=== PATIENT | female | born 2000 | race Caucasian/White ===

== ENCOUNTER 2023-09-15 21:18 | Emergency (ER) | payer OTHER, SELFPAY ==
[2023-09-15 21:35] VITALS: RESP 16; TEMP 36.8; O2SAT 99; BMI 29.2
--- NOTE | 2023-09-15 21:35 | HMH.EDGENADL ---
Discharge Plan Disposition Patient Disposition: Home, Self-Care Prescriptions Prescriptions: No Action No Known Home Medications Referrals Follow up/Referrals: Provider,MD Rusty [Primary Care Provider] - See instructions Activity Restrictions/Add. Instructions Additional Instructions/Restrictions: I am concerned that you could be having a miscarriage. Please follow-up in the next 2 to 3 days with [facility], PCP or ED to have your hormone level rechecked. Clinical Impressions Clinical Impression: Vaginal bleeding, Positive test Instructions Patient Instructions: DI for Urinary Tract Infection (UTI), DI for Urinary Tract Infection in Children Discharge ED Provider: Peter Pop General Adult HPI <Mayank Waldrop MD - Last Filed: 09/15/23 23:08> General Chief complaint: Urogenital-Female Stated complaint: vaginal bleeding Time Seen by Provider: 09/15/23 21:25 History of Present Illness HPI narrative: Patient is a 23-year-old female polysubstance abuser, reportedly a few weeks who presents emergency department for evaluation of vaginal bleeding. Onset was acute, over the last few days, passage of clots. Patient reportedly had 2 positive test at home. No other acute complaints at this time. Related Data Home Medications Medication Instructions Recorded Confirmed No Known Home Medications 09/15/23 09/15/23 Allergies Allergy/AdvReac Type Severity Reaction Status Date / Time No Known Allergies Allergy Verified 09/15/23 22:08 PFSH <Mayank Waldrop MD - Last Filed: 09/15/23 23:08> PFSH Disclaimer: The information contained in this section may have been updated after the patient was seen, as this information can be updated by other users. Social History (Updated 09/15/23 @ 23:08 by Mayank Waldrop MD) Smoking Status: Current every day smoker alcohol intake: never current occupational status: other Travel in the last 8 weeks: None <Mayank Waldrop MD - Last Filed: 09/15/23 23:08> ROS Obtained: Yes Systems reviewed as appropriate & no additional complaints except as documented Physical Exam <Mayank Waldrop MD - Last Filed: 09/15/23 23:08> General General appearance: alert and in no apparent distress Head Head exam: atraumatic and normocephalic Eye Eye exam: Present PERRL and EOMI ENT ENT exam: Present mucous membranes moist Neck Neck exam: Present normal inspection Chest Chest inspection: Present normal inspection and symmetric chest wall rise Respiratory Respiratory exam: Present normal lung sounds bilaterally; Absent respiratory distress Cardiovascular Cardiovascular exam: Present regular rate and normal rhythm Abdominal Exam Abdominal exam: Present soft; Absent tenderness, guarding or rebound Extremities Exam Extremities exam: Present normal inspection Neurological Exam Neurological exam: Present alert Psychiatric Psychiatric exam: Present normal affect Skin Skin exam: Present warm and dry Medical Decision Making <Mayank Waldrop MD - Last Filed: 09/15/23 23:08> Rex Riggs Pt receiving controlled substance: No Vital Signs: 09/15/23 21:35 09/15/23 21:39 09/15/23 23:15 Temperature 98.2 F Temperature Source Oral Pulse Rate 110 H 81 Respiratory Rate 16 Blood Pressure 125/86 123/77 Blood Pressure Mean Blood Pressure Position 02 Sat by Pulse Oximetry 99 100 Oxygen Delivery Method Room Air Room Air 09/15/23 23:16 09/16/23 00:14 Temperature 98.7 F Temperature Source Oral Pulse Rate 80 90 Respiratory Rate 16 16 Blood Pressure 119/82 133/90 Blood Pressure Mean 89 Blood Pressure Position Sitting 02 Sat by Pulse Oximetry 100 Oxygen Delivery Method Room Air Lab Data Lab Results 09/15/23 21:30: Urine Color Yellow, Urine Appearance Clear, Urine pH 6.0, Ur Specific Marble >= 1.030, Urine Protein Negative, Urine Glucose (UA) Negative, Urine Ketones Trace, Urine B
[2023-09-15 21:39] VITALS: BP 125/86; PULSE 110
[2023-09-15 21:40] LABS: Microscopic, Urine URINE MICROSCOPIC (MICROSCOPIC)
[2023-09-15 21:42] LABS: Appearance,Urine CLEAR (Clear); Bilirubin,Urine Negative (Negative); Blood, Urine 2+ (Negative); Color,Urine YELLOW (Yellow); Glucose,Urine (UA) Negative (Negative); Ketones,Urine TRACE (Negative); Leukocyte Esterase,Urine Negative (Negative); Nitrate,Urine Negative (Negative); Protein,Urine Negative (Negative); Specific Gravity, Urine >= 1.030 (1.005-1.030); Urobilinogen,Urine 0.2 EU/dl (0.2)
[2023-09-15 22:08] LABS: Basophils # 0.1 K/mm3 (0-0.2); Basophils % 0.4 % (0.1-2.0); Eosinophils # 0.1 K/mm3 (0.0-0.4); Hematocrit 40.5 % (37.0-47.0); Hemoglobin 13.8 g/dL (12.2-16.2); Lymphocytes # 2.9 K/mm3 (0.7-4.5); Lymphocytes % 24.8 % (10-50); Mean Corpuscular HGB Conc 34.1 g/dL (31.8-35.4); Mean Corpuscular Hemoglobin 32.7 pg (27.0-31.2); Mean Corpuscular Volume 95.9 fl (81-99); Mean Platelet Volume 7.4 fl (7.4-10.4); Monocytes # 0.4 K/mm3 (0.1-1.0); Monocytes % 3.5 % (1.7-9.3); Neutrophils # 8.2 K/mm3 (1.8-7.8); Neutrophils % 70.3 % (37.0-80.0); Platelet Count 349 K/mm3 (142-424); Red Blood Count 4.23 M/mm3 (4.20-5.40); Red Cell Distribution Width 12.6 % (11.5-17.5); White Blood Count 11.6 K/mm3 (4.8-10.8)
[2023-09-15 22:24] LABS: Chloride 105 mmol/L (98-107)
[2023-09-15 22:25] LABS: Potassium 3.7 mmoL/L (3.5-5.1); Sodium 139 mmol/L (136-145)
[2023-09-15 22:27] LABS: Alanine Aminotransferase 18 U/L (12-78); Alkaline Phosphatase 80 U/L (38-126); Aspartate Amino Transferase 32 U/L (14-36); Bilirubin,Total 0.3 mg/dl (0.2-1.3); Blood Urea Nitrogen 8 mg/dl (7-17); Creatinine Clearance Estimated 155 mL/min (50-200); Estimated Glomerular Filt Rate 106 ml/min (>60); GFR (African American) 128 ML/MIN (>60)
[2023-09-15 22:28] LABS: Albumin Level 4.9 g/dl (3.5-5.0); Albumin/Globulin Ratio 1.4 (1.1-1.8); Anion Gap 14.7 mEq/L (5-15); Calcium 9.5 mg/dl (8.4-10.2); Carbon Dioxide 23 mmol/L (22.0-30.0); Globulin 3.5 g/dL (1.3-3.2); Glucose 101 mg/dl (74-100); HCG Qualitative, Serum Positive (Negative); Total Protein,Serum 8.4 g/dl (6.3-8.2)
[2023-09-15 22:45] LABS: HCG,Quantitative 48 mIU/ml (0-5.42)
--- NOTE | 2023-09-15 22:53 | US_ITS ---
PROCEDURE INFORMATION: Exam: US , Transvaginal Exam date and time: 09/15/2023 11:31 PM Age: 23 years old Clinical indication: Lmp or gestational age (in weeks): 07/23/2023; Other: Bleeding in early ob; ; Additional info: Preg unknown location TECHNIQUE: Imaging protocol: Real-time transvaginal obstetrical ultrasound of the maternal pelvis with image documentation. Transvaginal imaging was used for better evaluation of the fetus, adnexa, and/or cervix. COMPARISON: No relevant prior studies available. FINDINGS: Gestation: No evidence of intrauterine . MATERNAL: Uterus: Uterus is normal in size. No focal uterine mass lesion. Endometrial stripe thickness measures 7 mm. Right ovary/adnexa: Right ovary measures 3.7 x 2.2 x 2.1 cm. Normal blood flow. Left ovary/adnexa: Left ovary measures 2.6 x 1.5 x 1.9 cm. Normal blood flow. Intraperitoneal space: No free fluid in the pelvis. IMPRESSION: No evidence of intrauterine . No significant abnormality demonstrated in the pelvis.
--- NOTE | 2023-09-15 22:55 | PC.NURSE ---
US call placed. Spoke with [facility]. En route for US at present
[2023-09-15 23:15] VITALS: BP 123/77; PULSE 81; O2SAT 100
[2023-09-15 23:16] VITALS: BP 119/82; PULSE 80; RESP 16; O2SAT 100
[2023-09-15 23:57] LABS: WBC,Urine Occasional #/hpf (0-3)
[2023-09-16 00:14] VITALS: BP 133/90; PULSE 90; RESP 16; TEMP 37.1; O2SAT 100
== END 2023-09-16 00:15 | disposition home or self-care (01) ==
PROVIDERS: Emergency Medicine; Emergency Provider Emergency Medicine
DX: O20.9 Hemorrhage in early pregnancy, unspecified (principal); Z3A.01 Less than 8 weeks gestation of pregnancy; O99.331 Smoking (tobacco) complicating pregnancy, first trimester; F17.210 Nicotine dependence, cigarettes, uncomplicated
CPT/HCPCS: 36415; 76817; 80053; 81001; 84702; 84703; 85025; 86850; 99284

== ENCOUNTER 2025-07-28 16:15 | Emergency (ER) | payer MEDICAID, SELFPAY ==
[2025-07-28 16:22] VITALS: BP 139/75; PULSE 83; RESP 16; TEMP 36.7; O2SAT 98; BMI 27.9
--- OUTSIDE RECORDS SUMMARY | 2025-07-28 16:22 | XMS_ITS | Clinical Summary ---
Author Organization [facility] Address [address] [place] [address] Phone Care Team Providers Care Director Advertising Name Role Phone Unavailable Primary Care Provider Unavailabl e Allergies No known active allergies Medications vit-iron fum-folic ac 27 mg iron- 0.8 mg Oral Tablet Take 1 Tab by mouth daily. Active HYDROcodone-garrett taminophen (NORCO) 5-325 mg Oral Tablet Take 0.5-2 Tabs by mouth every 4 hours as needed for Acute Pain (R52). 20 Tab 8 Active Additional Information Patient not taking.Reason: Other, Reported on 04/17/2019 Norelgestrom-Et hinyl Estradiol 150-35 mcg/24 hr TD Patch WeeklyIndicatio ns:Well woman exam Place 1 Patch onto the skin once a week. For 3 weeks then remove patch x 7 days to get a period 3 Patch 13 9 Active Active Problems No known active problems Resolved Problems Problem Noted Date Diagnosed Date Resolved Date Normal labor 11/02/2018 04/15/2019 Vaginal delivery 11/02/2018 04/15/2019 Tobacco smoking affecting pr egnancy in second trimester 06/06/2018 04/15/2019 High risk teen in second trimester 8 04/15/2019 First , second trimester 06/04/2018 04/15/2019 Immunizations Immunization Administration Dates Next Due Tdap 09/24/2018 Surgical History Surgery Date Site/Laterality Comments CHOLECYSTECTOMY, LAPAROSCOPIC 03/13/2019 - 04/12/2019 Family History Medical History Relation Name Comments Clotting Disorder Paternal Grandmother Fa ctor V Leiden Clotting Disorder Paternal Uncle Factor V Leiden Relation Name Status Comments Paternal Grandmother Paternal Uncle Social History Tobacco Use Types Packs/Day Years Used Date Smoking Tobacco: Every Day Cigarettes 1 9.9 Started: 08/19/2015 Smokeless Tobacco: Never Tobacco Cessation:Ready to Q uit: No Alcohol Use Standard Drinks/Week Comments No 0 (1 standard drink = 0.6 oz pur e alcohol) Sexually Active Control Partners Comments Yes Male Comments No Sex and Gender Information Value Date Recorded Sex Assigned at Not on file Legal Sex Female 6:01 PM EDT Gender Identity Not on file Sexual Orientation Not on file Obstetrics History Para Term AB IAB SAB Ectopic Multiple Livin g Live Births 1 1 1 0 1 1 Date Outcome GA Total Labor Labor/2nd/3rd Weight Sex Type Anes PTL Juju A1 A5 Name Clin 018 Term 39w 6d 0h 04m 0h 04m 7 lb 1.9 oz (3.23 kg) F Vag-S pont Epidur al N Livin g 9 9 KORB, EDUARD N BABY Lira, Alyssa lunsford MD Delivery Location:[facility] Last Filed Vital Signs Vital Sign Reading Time Taken Comments Blood Pressure 118/72 04/17/2019 10:04 AM EDT Pulse 76 04/17/2019 10:04 AM EDT Temperature 36.6 C (97.8 F) 11/03/2018 9:30 AM EST Respiratory Rate 18 11/03/2018 9:30 AM EST Oxygen Saturation 100% 11/03/2018 9:30 AM EST Inhaled Oxygen Concentration - - Weight 68.5 kg (151 lb) 04/17/2019 10:04 AM EDT Height 162.6 cm (5' 4 ) 11/02/2018 2:01 PM EST Body Mass Index - - Plan of Treatment Health Maintenance Due Date Last Done Comments Annual Wellness Exam 2005 HPV (1 - 3-dose series) 2017 Meningococcal B Vaccine (1 o f 2 - Standard) 2018 Hepatitis B Vaccine (1 of 3 - 19+ 3-dose series) 2021 Cervical Cancer Screening 2023 Pap Smear 2023 COVID-19 Vaccine (2023-2 5 season) 2025 Influenza Vaccine (#1) 2025 DTaP/TDaP/Td (2 - Td or Tdap) 09/24/2028 09/24/2018 Chlamydia Screening Discontinued 06/06/2018 Pneumococcal Vaccine 0-49 Aged Out No longer eligible based on patient's age to complete this topic Procedures Procedure Name Priority Date/Time Associated Diagnosis Comments CHLAMYDIA/GC BY TMA Routine 06/06/2018 2 :46 PM EDT First , second trimester from Last 3 Months or Most Recently Relevant to Health Maintenance Results * CHLAMYDIA/GC BY TMA (06/06/2018 2:46 PM EDT) Chlamydia trachomatis Not Detected Not Detected 06/07/2018 6:14 AM EDT PREFERRED [facility], [employer] Neisseria gonorrhoeae Not Detected Not Detected 06/07/2018 6:14 AM EDT PREFERRED Cardiac Guard, [employer] Urine 06/06/2018 2:46 PM EDT 06/06/2018 2:46 PM EDT Narrative PREFERRED [facility] Guard, [employer] - 06/07/2018 6:14 AM EDT Testing methodology is business support professional mediated amplification (TMA) using the Aptima Combo 2 assay from [employer]. A negative result does not completely rule out a Chlamydia trachomatis or Neisseria gonorrhoeae infection due to potential inhibitors or levels present below the limit of detection by this assay. Results are dependent on proper collection and transport of specimen. This test is indicated for medical purposes only and should not be used for legal or forensic purposes. The performance characteristics of this test were validated by [facility] laboratory. This assay is FDA cleared to test the following specimens: clinician-collected endocervical, vaginal and male urethral swab specimens, patient collected vaginal specimens within a clinic setting, Thin Prep Specimens in PreservCyt Solution, and first-stream, unpreserved male urine specimens. Testing on female urine is not FDA approved by this methodology, but has been developed and validated by the [facility] laboratory. Detailed methodology is available upon request. Alyssa Lira MD MICROBIOLOGY - GENERAL KIM GARCIA Final Result [facility] [address] [facility] , [place] [place] [id number] from Last 3 Months or Most Recently Relevant to Health Maintenance Insurance ANTHEM PPO ANTHEM PPO PPO Advance Directives For more information, please contact: [phone] * Full Code (Latest Code Status on File) Date Activated Date Inactivated Comments 11/01/2018 9:59 PM 11/03/2018 7:40 PM
--- OUTSIDE RECORDS SUMMARY | 2025-07-28 16:22 | XMS_ITS | Referral Summary ---
Author Organization [facility] Address [address] [place] [address] Phone Care Team Providers Care Astronaut Mission Specialist Name Role Phone Yisel Velasquez MD Primary Care Provider Rebeka vailable Immunizations Immunization Administration Dates Next Due Hepatitis B, Adult 2002 Social History Tobacco Use Types Packs/Day Years Used Date Smoking Tobacco: Never Assessed Comments Unknown Sex and Gender Information Value Date Recorded Sex Assigned at Not on file Legal Sex Female 5:12 AM EDT Gender Identity Not on file Sexual Orientation Not on file Last Filed Vital Signs Vital Sign Reading Time Taken Comments Blood Pressure - - Pulse - - Temperature 36.7 C (98.1 F) 2002 9:30 AM EDT Respiratory Rate - - Oxygen Saturation - - Inhaled Oxygen Concentration - - Weight 4.196 kg (9 lb 4 oz) 2002 9:30 AM E DT Height - - Body Mass Index - - Plan of Treatment Not on file Insurance [employer] ALL OTHERS NOT MEDICARE Care Teams Astronaut Mission Specialist Relationship Specialty Start Date End Date Yisel Velasquez MD PCP - General 02
--- OUTSIDE RECORDS SUMMARY | 2025-07-28 16:22 | XMS_ITS | Clinical Summary ---
Author Organization [facility] Address [facility] [place] [address] Care Team Providers Care Mutual Fund Sales Agent Name Role Phone None, None Primary Care Provider Sarah Caballero MD Unavailable [phone] Allergies No known active allergies Medications glycopyrrolate (ROBINUL) 1 mg tablet Take 1 Tab by mouth 3 times daily as needed for Pain. 20 Tab 9 Active Additional Information Patient not taking.Reported on 04/05/2019 polyethylene glycol (GLYCOLAX;CHRISTOFER AX) 17 gram/dose powder Take 17 g by mouth daily. Active XULANE 150-35 mcg/24 hr Patch Weekly 9 Active norelgestromin- ethinyl estradiol (XULANE) 150-35 mcg/24 hr Patch Weekly Apply 1 Patch to skin. 9 Active Active Problems No known active problems Resolved Problems Problem Noted Date Diagnosed Date Resolved Date Biliary colic 03/06/2019 02/28/2022 Overview (03/06/2019): Added automatically from request for surgery [id number] Immunizations Immunization Administration Dates Next Due Hep B - Adult 2002 Tdap 09/24/2018 Family History Medical History Relation Name Comments Heart Problems Paternal Grandfather Heart Problems Paternal Uncle great Anesthesia Complications Neg Hx Relation Name Status Comments Paternal Grandfather Paternal Uncle Social History Tobacco Use Types Packs/Day Years Used Date Smoking Tobacco: Every Day Cigarettes Smokeless Tobacco: Never Alcohol Use Standard Drinks/Week Comments Yes 0 (1 standard drink = 0.6 oz pur e alcohol) occ Comments Unknown Sex and Gender Information Value Date Recorded Sex Assigned at Not on file Legal Sex Female 4:53 AM EDT Gender Identity Not on file Sexual Orientation Not on file Last Filed Vital Signs Vital Sign Reading Time Taken Comments Blood Pressure 118/64 04/05/2019 2:48 PM EDT Pulse 58 04/05/2019 2:48 PM EDT Temperature 36.3 C (97.3 F) 04/05/2019 1:45 PM EDT Respiratory Rate 14 04/05/2019 2:48 PM EDT Oxygen Saturation 99% 04/05/2019 2:48 PM EDT Inhaled Oxygen Concentration - - Weight 67 kg (147 lb 11.3 oz) 04/05/2019 10:19 A M EDT Height 162.6 cm (5' 4 ) 04/05/2019 10:19 AM EDT Body Mass Index 25.35 04/05/2019 10:19 AM EDT Plan of Treatment Health Maintenance Due Date Last Done Comments Tobacco Cessation Counseling 2014 HPV Vaccine (1 - 3-dose series) 2017 Chlamydia Screening 2018 Lipid Screening 2022 Cervical Cancer Screening 2023 Depression Screening 11/13/2024 COVID-19 Vaccine ( season) 2025 Influenza Vaccination (#1) 2025 Tetanus Vaccination (Every 10 Years) 09/24/202809/13 Care Teams Mutual Fund Sales Agent Relationship Specialty Start Date End Date None, None [address] [place] [address] PCP - General 02/25/19 Sarah Curiel MD [address] [place] [address] General Surgery 11/20/22
--- OUTSIDE RECORDS SUMMARY | 2025-07-28 16:22 | XMS_ITS | Clinical Summary ---
Author Organization [facility] Address [address] [place] [address] Phone Care Team Providers Care Cook Night Name Role Phone Yisel Velasquez MD Primary Care Provider Rebeka vailable Immunizations Immunization Administration Dates Next Due Hepatitis B, Adult 2002 Family History Medical History Relation Name Comments High BP Maternal Grandfather Arthritis Maternal Grandmother rheumat oid arthritis Seizures Maternal Uncle epilepsy Heart Disease Paternal Grandfather o f heart attack at 36 years old Relation Name Status Comments Maternal Grandfather Maternal Grandmother Maternal Uncle Paternal Grandfather Social History Tobacco Use Types Packs/Day Years [...] Health Maintenance Due Date Last Done Comments DTap,Tdap,and Td (1 - Tdap) 2013 HPV (1 - 3-dose series) 2017 Meningococcal B (MenB) (1 of 2 - Standard) 2018 Pap Screening 2023 Influenza Vaccine (#1) 2025 RSV Vaccine (60+ or ) (1 - 1-dose 75+ series) 2077 Meningococcal conjugate sergio nt 4 (MCV4) Aged Out No longer eligible b ased on patient's age to complete this topic Pneumococcal 0-49 Aged Out No longer eligible based on patient's age to complete this topic RSV Immunization (<20 months) Aged Out No longer eligible based on patient's age to complete this topic Insurance Care Teams Cook Night Relationship Specialty Start Date End Date Yisel Velasquez MD PCP - General 02
--- OUTSIDE RECORDS SUMMARY | 2025-07-28 16:22 | XMS_ITS | Encounter Summary ---
Author Organization [facility] Address [address] [place] [address] Care Team Providers Care Lode Miner Blasting Name Role Phone None, None Primary Care Provider Sarah Caballero MD Unavailable [phone] Encounter Details Date Type Department Care Team (Latest Contact Info) Description 03/06/2019 Preop [address] Orders [facility] Physicians - General Surgery, [facility] [address] [phone] Noni Allen RN [address] [facility] [facility] [place], [place] [id number] Biliary colic (Primary Dx) Social History Tobacco Use Types Packs/Day Years Used Date Smoking Tobacco: Every Day Smokeless Tobacco: Never Comments No Sex and Gender Information Value Date Recorded Sex Assigned at Not on file Legal Sex Female 4:53 AM EDT Gender Identity Not on file Sexual Orientation Not on file documented as of this encounter Plan of Treatment Not on file documented as of this encounter Visit Diagnoses Diagnosis Biliary colic- Primary Calculus of gallbladder without mention of cholecystitis or obstruction documented in this encounter Care Teams Lode Miner Blasting Relationship Specialty Start Date End Date None, None [address] [place] [address] PCP - General 02/25/19 Sarah Curiel MD [address] [place], [place] [id number] General Surgery 11/20/22 documented as of this encounter
[2025-07-28] MEDS: LIDOCAINE 1% 10ML MDV 10 ML SUBCUT (16:42)
[2025-07-28 16:46] LABS: Hematocrit 41.6 % (37.0-47.0); Hemoglobin 14.1 g/dL (12.2-16.2); Immature Granulocytes % 0.3 %; Mean Corpuscular HGB Conc 33.9 g/dL (31.8-35.4); Mean Corpuscular Hemoglobin 30.5 pg (27.0-31.2); Mean Corpuscular Volume 90.0 fl (81-99); Nucleated Red Blood Cells % 0 %; Platelet Count 347 K/mm3 (142-424); Red Blood Count 4.62 M/mm3 (4.20-5.40); Red Cell Distribution Width-SD 43.2 fL; White Blood Count 11.9 K/mm3 (4.8-10.8)
--- NOTE | 2025-07-28 16:46 | ED_ITS ---
Discharge Plan Disposition Patient Disposition: Home, Self-Care Condition: Good Prescriptions Prescriptions: No Action No Known Home Medications Referrals Follow up/Referrals: Provider,MD Rusty [Primary Care Provider, Medical] - See instructions Activity Restrictions/Add. Instructions Additional Instructions/Restrictions: Return to the ER if you have any worsening redness, drainage, fevers, or if you have any other acute concerns. Clean the wound twice daily with soap and water. Clinical Impressions Clinical Impression: Paronychia, Lymphangitis Instructions Patient Instructions: DI for Skin Abscess Print Language Print Language: British Discharge ED Provider: Tameka Cowan General Adult HPI General Chief complaint: Skin/Abscess/Foreign Body Stated complaint: L arm Middle finger swelling with Redness in arm Time Seen by Provider: 07/28/25 16:18 Mode of Arrival: Ambulatory Source of Information: Patient Description of Symptoms (Recalled from ER Triage Doc. by RN): Patient states yesterday she noticed some pain and swelling and redness around fingernail of left hand middle finger. She continued to have pain in left hand and then today noticed redness going up left arm to her elbow. History of Present Illness HPI narrative: Patient is an otherwise healthy 22-year-old female who presented to the emergency department with swelling and redness around the left middle finger and up her arm. Patient states that she used to bite her. Has since stopped and started biting her nails again. Patient noticed some pus around left middle finger as well as some redness that spreads up the left arm. Patient states that she has not had any fevers, abdominal pain. Patient states that she does not use IV drugs. Will discharge Related Data Home Medications ?Medication ?Instructions ?Recorded ?Confirmed No Known Home Medications 09/15/2302/02 Allergies Allergy/AdvReac Type Severity Reaction Status Date / Time No Known Allergies Allergy Verified 07/28/25 16:26 [facility] Disclaimer: The information contained in this section may have been updated after the patient was seen, as this information can be updated by other users. Social History (Updated 09/15/23 @ 23:08 by Mayank Waldrop MD) Smoking Status: Current every day smoker alcohol intake: never current occupational status: other Travel in the last 8 weeks?: None Have you lived/traveled outside US in past 30 days?: No Contact w/someone who lives/traveled outside US past 30 days?: No Exposure to someone with infectious disease in past 14 days?: No Do you have a fever (greater than 100.4 F or 38 C)?: No Have you tested positive for COVID-19?: No Exposed to someone with COVID-19 in past 14 days?: No Do you have a sore throat?: No Do you have a cough?: No Do you have any weakness?: No Do you have any diarrhea?: No Are you experiencing any unusual bleeding?: No Do you have any muscle aches/pain?: No Do you have any abdominal pain?: No Are you experiencing loss of taste or smell?: No ROS Obtained: Yes All systems reviewed & no additional complaints except as documented and Yes Systems reviewed as appropriate & no additional complaints except as documented Physical Exam General General appearance: alert and in no apparent distress Head Head exam: atraumatic, normocephalic and normal inspection Eye Eye exam: Present normal appearance, PERRL and EOMI; Absent scleral icterus ENT ENT exam: Present normal exam and normal external ear exam Neck Neck exam: Present normal inspection and full ROM Chest Chest inspection: Present normal inspection and symmetric chest wall rise Respiratory Respiratory exam: Present normal lung sounds bilaterally; Absent respiratory distress or wheezes Cardiovascular Cardiovascular exam: Present regular rate, normal rhythm and normal heart sounds Abdominal Exam Abdominal exam: Present soft and distention; Absent tenderness, guarding or rebound Extremities Exam Extremities exam: Present normal inspection and full ROM Back Exam Back exam: Present normal inspection and full ROM Neurological Exam Neurological exam: Present alert and oriented X3 Psychiatric Psychiatric exam: Present normal affect and normal mood Skin Skin exam: Present warm, dry and other (L middle finger with paronychia and lymphangitis to the elbow) Medical Decision Making Medical Records Medical records reviewed: Yes I reviewed the patient's medical records. Screening: Per USPSTF and CDC recommendations, given the prevalence of disease in our region, it is our hospital?s policy to screen for HIV and viral Hepatitis for all patients aged 18 and over and those with ongoing risk factors. Rex Inquiry Pt receiving controlled substance: No Vital Signs: 07/28/25 16:22 07/28/25 16:58 07/28/25 17:30 Temperature 98.1 F Temperature Source Oral Pulse Rate 79 80 Pulse Rate [Right Brachial] 83 Respiratory Rate 16 18 18 Blood Pressure 111/93 H 117/82 Blood Pressure [Right Arm] 139/75 Blood Pressure Mean [Right Arm] 96 Blood Pressure Source Automatic Cuff Automatic Cuff Blood Pressure Source [Right Arm] Automatic Cuff Blood Pressure Position Sitting Sitting Blood Pressure Position [Right Arm] Sitting 02 Sat by Pulse Oximetry 98 98 98 Oxygen Delivery Method Room Air Room Air Room Air 07/28/25 18:40 07/28/25 19:56 Temperature 98.1 F Temperature Source Oral Pulse Rate 82 95 H Pulse Rate [Right Brachial] Respiratory Rate 18 16 Blood Pressure 129/91 H 116/85 Blood Pressure [Right Arm] Blood Pressure Mean [Right Arm] Blood Pressure Source Automatic Cuff Blood Pressure Source [Right Arm] Blood Pressure Position Sitting Sitting Blood Pressure Position [Right Arm] 02 Sat by Pulse Oximetry 100 Oxygen Delivery Method Room Air Room Air Lab Data Lab results reviewed: Yes I reviewed the patient's lab results. Lab Results 07/28/25 16:30: WBC 11.9 H, RBC 4.62, Hgb 14.1, Hct 41.6, MCV 90.0, MCH 30.5, MCHC 33.9, RDW 13.2, Plt Count 347, MPV 8.7, Neut % (Auto) 69.2, Lymph % (Auto) 22.8, [place] % (Auto) 6.7, Eos % (Auto) 0.7, Baso % (Auto) 0.3, Neut # (Auto) 8.2 H, Lymph # (Auto) 2.7, [place] # (Auto) 0.8, Eos # (Auto) 0.1, Baso # (Auto) 0.0, Sodium 140, Potassium 3.5, Chloride 101, Carbon Dioxide 28, Anion Gap 14.5, BUN 5 L, Creatinine 0.70, Estimated Creat Clear 150, Estimated GFR 104, Est GFR ( Amer) 125, Glucose 105 H, Calcium 9.7, Total Bilirubin 1.1, AST 26, ALT 15, Alkaline Phosphatase 89, C-Reactive Protein 34.2 H, Total Protein 8.4 H, Albumin 4.8, Globulin 3.6 H, Albumin/Globulin Ratio 1.3, HCV Ab KAYLA w/Rflx PCR Qn Negative, HIV Ag/Ab Combo Qual Negative 07/28/25 16:30 07/28/25 16:30 Orders (Tests/Meds): ED MEDICATIONS Discontinued Medications Generic Name Dose Route Start Last Admin Trade Name Freq PRN Reason Stop Dose Admin Dalbavancin 1,500 mg/ Dextrose 250 mls @ 500 mls/hr 07/28/25 16:43 07/28/25 19:45 IV 07/28/25 16:44 Infused ONCE ONE Infusion Lidocaine HCl 10 ml 07/28/25 16:39 07/28/25 16:42 Lidocaine 1% 10ml Mdv SUBCUT 07/28/25 16:40 10 ml ONCE ONE Administration ORDERS Category Date Time Status CBC w/Auto Diff [Complete Blood Count Auto Diff] Stat Lab 07/28/25 16:30 Completed CMP [Comprehensive Metabolic Panel] Stat Lab 07/28/25 16:30 Completed CRP [C-Reactive Protein] Stat Lab 07/28/25 16:30 Completed HIV Combo Stat Lab 07/28/25 16:30 Completed Hepatitis C Ab Qual. W/ RFX Stat Lab 07/28/25 16:30 Completed Blood Culture Stat Micro 07/28/25 16:30 Results Medical Decision Narrative: Patient is an otherwise healthy 22-year-old female who presented to the emergency department with redness of left middle finger that extends into the left arm. On arrival, patient was hemodynamically stable with unremarkable vital signs. Differential includes but not limited to: Paronychia, lymphangitis, cellulitis, abscess, amongst others. On exam, patient had a paronchyia with clinical evidence of lymphangitis. Bedside I&D was performed after nerve block. Pus was drained. Patient I wanted to admit the patient for IV antibiotics patient overnight patient states she has never been evaluated. Patient was given IV Dalvance in the emergency department due to patient was instructed to return emergency department for any acute or worsening symptoms. Patient was discharged home in stable condition, return precautions were discussed.. Procedures Nerve Block Nerve Block 1: Time out performed: Yes Local Anesthetic: lidocaine 1% Amount of anesthesia used (mL): 5 Side: Left Nerve Blocks: digital Abscess I/D Site: upper extremity Side (if applicable): left Sedation/analgesia: none Local Anesthetic: lidocaine 1% Technique: incised with #11 blade Amount of fluid expressed (mL): 2 Irrigation: Yes Packing used?: none Critical Care Critical Care Time Critical Care Time: No
[2025-07-28 16:52] LABS: Albumin Level 4.8 g/dl (3.5-5.0); Chloride 101 mmol/L (98-107)
[2025-07-28 16:53] LABS: Potassium 3.5 mmoL/L (3.5-5.1); Sodium 140 mmol/L (136-145)
[2025-07-28 16:55] LABS: Alanine Aminotransferase 15 U/L (12-78); Anion Gap 14.5 mEq/L (5-15); Aspartate Amino Transferase 26 U/L (14-36); Blood Urea Nitrogen 5 mg/dl (7-17); Carbon Dioxide 28 mmol/L (22.0-30.0); Creatinine Clearance Estimated 150 mL/min (50-200); Creatinine,Serum 0.70 mg/dl (0.52-1.04); Estimated Glomerular Filt Rate 104 ml/min (>60); GFR (African American) 125 ML/MIN (>60)
[2025-07-28 16:56] LABS: Albumin/Globulin Ratio 1.3 (1.1-1.8); Alkaline Phosphatase 89 U/L (38-126); Bilirubin,Total 1.1 mg/dl (0.2-1.3); Calcium 9.7 mg/dl (8.4-10.2); Globulin 3.6 g/dL (1.3-3.2); Glucose 105 mg/dl (74-100); Total Protein,Serum 8.4 g/dl (6.3-8.2)
[2025-07-28] MEDS: DALBAVANCIN HCL 1,500 MG in DEXTROSE 5 % IN WATER 250 ML 500 MG IV (16:56)
[2025-07-28 16:58] VITALS: BP 111/93; PULSE 79; RESP 18; O2SAT 98
[2025-07-28 17:12] LABS: C-Reactive Protein 34.2 mg/L (0-4)
[2025-07-28 17:30] VITALS: BP 117/82; PULSE 80; RESP 18; O2SAT 98
[2025-07-28 17:45] LABS: Hepatitis C Ab Qual. W/ RFX NEGATIVE (Negative)
[2025-07-28 18:40] VITALS: BP 129/91; PULSE 82; RESP 18; O2SAT 100
[2025-07-28 19:56] VITALS: BP 116/85; PULSE 95; RESP 16; TEMP 36.7; O2SAT 96
== END 2025-07-28 19:57 | disposition home or self-care (01) ==
PROVIDERS: Emergency Provider Student in an Organized Health Care Education/Training Program
DX: L03.012 Cellulitis of left finger (principal); M79.645 Pain in left finger(s)
CPT/HCPCS: 10060; 80053; 85025; 86140; 86803; 87040; 87389; 96374; 99285; J0875; J2003; J7060

== ENCOUNTER 2025-07-29 17:05 | Emergency (ER) | payer MEDICAID, SELFPAY ==
[2025-07-29 17:07] VITALS: BP 135/82; PULSE 80; RESP 18; TEMP 36.8; O2SAT 98; BMI 27.9
[2025-07-29 17:22] VITALS: BP 135/102; PULSE 77; O2SAT 97
--- NOTE | 2025-07-29 17:24 | HMH.EDGENADL ---
Discharge Plan Disposition Patient Disposition: Home, Self-Care Condition: Good Prescriptions Prescriptions: No Action No Known Home Medications Referrals Follow up/Referrals: Provider,MD Rusty [Primary Care Provider, Medical] - See instructions Activity Restrictions/Add. Instructions Additional Instructions/Restrictions: Return to the emergency department for any worsening redness or signs of infection. Otherwise continue to keep the wound clean with soap and water. Clinical Impressions Clinical Impression: Lymphangitis, Paronychia Instructions Patient Instructions: DI for Skin Abscess Print Language Print Language: Bangladeshi Discharge ED Provider: Tameka Cowan General Adult HPI General Chief complaint: Skin/Abscess/Foreign Body Stated complaint: Possible L Arm Infection Time Seen by Provider: 07/29/25 17:23 History of Present Illness HPI narrative: Patient is a 25-year-old female who is otherwise healthy who presented to the emergency department with left arm redness. Patient states that she was seen here yesterday in the emergency department and was given a dose of IV antibiotics and was discharged home given the patient requested to go home for an interview today. States that her patient states that her redness initially had gotten worse just prior to arrival but while waiting in the emergency department waiting room the redness completely resolved. Patient states that the pain in her arm has since improved as well. Patient denies any fevers or other associated symptoms at this time. Related Data Home Medications ?Medication ?Instructions ?Recorded ?Confirmed No Known Home Medications 09/15/23 09/15/23 Allergies Allergy/AdvReac Type Severity Reaction Status Date / Time No Known Allergies Allergy Verified 07/28/25 16:26 [facility] Disclaimer: The information contained in this section may have been updated after the patient was seen, as this information can be updated by other users. Social History (Updated 09/15/23 @ 23:08 by Mayank Waldrop MD) Smoking Status: Current every day smoker alcohol intake: never current occupational status: other Travel in the last 8 weeks?: None Have you lived/traveled outside US in past 30 days?: No Contact w/someone who lives/traveled outside US past 30 days?: No Exposure to someone with infectious disease in past 14 days?: No Do you have a fever (greater than 100.4 F or 38 C)?: No Have you tested positive for COVID-19?: No Exposed to someone with COVID-19 in past 14 days?: No Do you have a sore throat?: No Do you have a cough?: No Do you have any weakness?: No Do you have any diarrhea?: No Are you experiencing any unusual bleeding?: No Do you have any muscle aches/pain?: No Do you have any abdominal pain?: No Are you experiencing loss of taste or smell?: No ROS Obtained: Yes All systems reviewed & no additional complaints except as documented and Yes Systems reviewed as appropriate & no additional complaints except as documented Physical Exam General General appearance: alert and in no apparent distress Head Head exam: atraumatic, normocephalic and normal inspection Eye Eye exam: Present normal appearance, PERRL and EOMI; Absent scleral icterus ENT ENT exam: Present normal exam and normal external ear exam Neck Neck exam: Present normal inspection and full ROM Chest Chest inspection: Present normal inspection and symmetric chest wall rise Respiratory Respiratory exam: Present normal lung sounds bilaterally; Absent respiratory distress or wheezes Cardiovascular Cardiovascular exam: Present regular rate, normal rhythm and normal heart sounds Abdominal Exam Abdominal exam: Present soft and distention; Absent tenderness, guarding or rebound Extremities Exam Extremities exam: Present normal inspection and full ROM Back Exam Back exam: Present normal inspection and full ROM Neurological Exam Neurological exam: Present alert and oriented X3 Psychiatric Psychiatric exam: Present normal affect and normal mood Skin Skin exam: Present warm, dry and other (LUE with drained paronychia of the middle finger with no surrounding redness or streaking) Medical Decision Making Medical Records Screening: Per USPSTF and CDC recommendations, given the prevalence of disease in our region, it is our hospital?s policy to screen for HIV and viral Hepatitis for all patients aged 18 and over and those with ongoing risk factors. Rex Inquiry Pt receiving controlled substance: No Vital Signs: 07/29/25 17:07 07/29/25 17:22 07/29/25 17:30 Temperature 98.2 F Temperature Source Oral Pulse Rate 77 63 Pulse Rate [Radial] 80 Respiratory Rate 18 Blood Pressure 135/102 H 126/93 H Blood Pressure [Right Arm] 135/82 Blood Pressure Mean 108 100 Blood Pressure Mean [Right Arm] 99 Blood Pressure Source Blood Pressure Source [Right Arm] Automatic Cuff Blood Pressure Position Blood Pressure Position [Right Arm] Sitting 02 Sat by Pulse Oximetry 98 97 98 Oxygen Delivery Method Room Air 07/29/25 17:40 07/29/25 17:57 Temperature 98.2 F Temperature Source Oral Pulse Rate 59 L 70 Pulse Rate [Radial] Respiratory Rate 18 Blood Pressure 124/94 H 131/101 H Blood Pressure [Right Arm] Blood Pressure Mean 99 Blood Pressure Mean [Right Arm] Blood Pressure Source Automatic Cuff Blood Pressure Source [Right Arm] Blood Pressure Position Sitting Blood Pressure Position [Right Arm] 02 Sat by Pulse Oximetry 96 Oxygen Delivery Method Room Air Lab Data Lab results reviewed: Yes I reviewed the patient's lab results. Medical Decision Narrative: Patient is an otherwise healthy 25-year-old female who presented to the emergency department with left upper extremity redness. On arrival, patient was hemodynamically stable with unremarkable vital signs. Differential includes but not limited to paronychia, lymphangitis, cellulitis, fracture, amongst others. I saw this patient yesterday in the emergency department and patient had a paronychia that was drained by myself. Patient at that time had lymphangitis but patient stated that she could not stay in the hospital for IV antibiotics because she had an interview today. Patient was given Dalvance in the emergency department. Patient showed me a picture of what her arm looks like 3 hours prior and there was worsening redness but at this time the redness has completely resolved. At this time given complete resolution of her symptoms I feel that she is appropriate for discharge home. Return precautions were discussed and patient was otherwise discharged home in stable condition. Critical Care Critical Care Time Critical Care Time: No
--- OUTSIDE RECORDS SUMMARY | 2025-07-29 17:25 | XMS_ITS | Encounter Summary ---
Author Organization [facility] Address [address] [place] [address] Care Team Providers Care Chemistry Technical Officer Name Role Phone None, None Primary Care Provider Sarah Caballero MD Unavailable [phone] Encounter Details Date Type Department Care Team (Latest Contact Info) Description 03/06/2019 Preop Surgical Orders [facility] Physicians - General Surgery, [facility] [address] [id number] Noni Allen RN [address] [facility] [place], [place] [id number] Biliary colic (Primary Dx) Social History Tobacco [...] obstruction documented in this encounter Care Teams Chemistry Technical Officer Relationship Specialty Start Date End Date None, None [address] [place] [address] PCP - General 02/25/19 Sarah Curiel MD [address] [place], [place] [id number] General Surgery 11/20/22 documented as of this encounter
--- OUTSIDE RECORDS SUMMARY | 2025-07-29 17:25 | XMS_ITS | Referral Summary ---
Author Organization [facility] Address [address] [place] [address] Phone Care Team Providers Care Senior J2Ee Developer Name Role Phone Yisel Velasquez MD Primary [...] CROSS ALL OTHERS NOT MEDICARE Care Teams Senior J2Ee Developer Relationship Specialty Start Date End Date Yisel Velasquez MD PCP - General 02
--- OUTSIDE RECORDS SUMMARY | 2025-07-29 17:25 | XMS_ITS | Clinical Summary ---
Author Organization [facility] Address [address] [place] [address] Phone Care Team Providers Care Ems Coordinator Name Role Phone Unavailable Primary Care Provider [...] N BABY Lira, Alyssa lunsford MD Delivery Location:[facility]) Last Filed Vital Signs [...] Not Detected 06/07/2018 6:14 AM EDT [facility] [employer] Neisseria gonorrhoeae Not Detected Not Detected 06/07/2018 6:14 AM EDT [facility] [employer] Urine 06/06/2018 2:46 PM EDT 06/06/2018 2:46 PM EDT Narrative [facility] [employer] - 06/07/2018 6:14 AM EDT Testing methodology is fuel attendant mediated amplification (TMA) using the Aptima Combo 2 assay from [employer]. A negative result does not completely rule [...] characteristics of this test were validated by [facility]. This assay is FDA cleared to test the following specimens: clinician-collected endocervical, vaginal and male urethral swab specimens, patient collected vaginal specimens within a clinic setting, Thin Prep Specimens in PreservCyt Solution, and first-stream, unpreserved male urine specimens. Testing on female urine is not FDA approved by this methodology, but has been developed and validated by the [facility] laboratory. Detailed methodology is available upon request. Alyssa Lira MD MICROBIOLOGY - GENERAL KIM GARCIA Final Result [facility] [address] [place] [address] from Last 3 Months or Most Recently Relevant to Health Maintenance Insurance ANTHEM PPO ANTHEM PPO PPO Advance Directives For more information, please contact: [phone] * Full Code (Latest Code Status on File) Date Activated Date Inactivated Comments 11/01/2018 9:59 PM 11/03/2018 7:40 PM
--- OUTSIDE RECORDS SUMMARY | 2025-07-29 17:25 | XMS_ITS | Clinical Summary ---
Author Organization [facility] Address [facility] [place] [address] Care Team Providers Care Patrol Commander Name Role Phone None, None Primary Care Provider Sarah Caballero MD Unavailable [phone] Allergies No known active allergies Medications glycopyrrolate [...] (03/06/2019): Added automatically from request for surgery [id number] Immunizations Immunization Administration Dates Next Due Hep [...] Vaccination (Every 10 Years) 09/24/202809/13 Care Teams Patrol Commander Relationship Specialty Start Date End Date None, None [address] [place] [address] PCP - General 02/25/19 Sarah Curiel MD [address] [place] [address] General Surgery 11/20/22
--- OUTSIDE RECORDS SUMMARY | 2025-07-29 17:25 | XMS_ITS | Clinical Summary ---
Author Organization [facility] Address [address] [place] [address] Phone Care Team Providers Care Laundry Agent Name Role Phone Yisel Velasquez MD Primary [...] to complete this topic Insurance Care Teams Laundry Agent Relationship Specialty Start Date End Date Yisel Velasquez MD PCP - General 02
[2025-07-29 17:30] VITALS: BP 126/93; PULSE 63; O2SAT 98
[2025-07-29 17:40] VITALS: BP 124/94; PULSE 59; O2SAT 96
--- NOTE | 2025-07-29 17:46 | PC.NURSE ---
DR FRASER AT BEDSIDE
[2025-07-29 17:57] VITALS: BP 131/101; PULSE 70; RESP 18; TEMP 36.8; O2SAT 98
== END 2025-07-29 17:58 | disposition home or self-care (01) ==
PROVIDERS: Emergency Provider Student in an Organized Health Care Education/Training Program
DX: I89.1 Lymphangitis (principal)
CPT/HCPCS: 99282; 99283

== ENCOUNTER 2025-08-13 23:03 | Emergency (ER) | payer MEDICAID, SELFPAY ==
[2025-08-13 22:56] VITALS: BP 137/102; PULSE 136; RESP 18; TEMP 36.8; O2SAT 100; BMI 27.9
--- NOTE | 2025-08-13 23:01 | ED_ITS ---
Discharge Plan Disposition Patient Disposition: Left Against Medical Advice Prescriptions Prescriptions: No Action No Known Home Medications Clinical Impressions Clinical Impression: Opiate overdose Instructions Patient Instructions: Subjective Opioid Withdrawal Scale (SOWS) Print Language Print Language: Citizen Of [place] Discharge ED Provider: Peter Pop Adult HPI General Chief complaint: Overdose Stated complaint: overdose Time Seen by Provider: 08/13/25 23:04 History of Present Illness HPI narrative: 25-year-old female with history of drug addiction presents for opiate overdose. She reports she has been clean for the last year but used tonight. She reports that she snorted a substance and then and does remember what else happened. Per EMS, her friend gave her 2 doses of nasal Narcan and she was waking up by the time she got an ambulance. On arrival patient is tearful, denies any intentional self-harm, denies any other symptoms at this time. Related Data Home Medications ?Medication ?Instructions ?Recorded ?Confirmed No Known Home Medications 09/15/23 1102/02 Allergies Allergy/AdvReac Type Severity Reaction Status Date / Time No Known Allergies Allergy Verified 07/28/25 16:26 [facility] Disclaimer: The information contained in this section may have been updated after the patient was seen, as this information can be updated by other users. Social History (Updated 09/15/23 @ 23:08 by Mayank Waldrop MD) Smoking Status: Current every day smoker alcohol intake: never current occupational status: other Travel in the last 8 weeks?: None ROS Obtained: Yes All systems reviewed & no additional complaints except as documented Physical Exam General General appearance: alert and anxious Head Head exam: atraumatic and normocephalic Eye Eye exam: Present normal appearance, PERRL and EOMI ENT ENT exam: Present normal oropharynx and normal external ear exam Neck Neck exam: Present normal inspection and full ROM Chest Chest inspection: Present normal inspection and symmetric chest wall rise; Absent tenderness Respiratory Respiratory exam: Present normal lung sounds bilaterally; Absent respiratory distress Cardiovascular Cardiovascular exam: Present normal rhythm and tachycardia Abdominal Exam Abdominal exam: Present soft; Absent distention, tenderness or guarding Extremities Exam Extremities exam: Present normal inspection; Absent edema or joint swelling Back Exam Back exam: Present normal inspection; Absent tenderness Neurological Exam Neurological exam: Present alert and oriented X3; Absent motor sensory deficit Psychiatric Psychiatric exam: Present normal affect and normal mood Skin Skin exam: Present warm, dry and normal color Lymphatic Lymphatic Findings: no adenopathy Medical Decision Making Medical Records Medical records reviewed: Yes I reviewed the patient's medical records. Screening: Per USPSTF and CDC recommendations, given the prevalence of disease in our region, it is our hospital?s policy to screen for HIV and viral Hepatitis for all patients aged 18 and over and those with ongoing risk factors. Rex Inquiry Pt receiving controlled substance: No Rex was queried for this patient: No Vital Signs: 08/13/25 22:56 Temperature 98.3 F Temperature Source Oral Pulse Rate [Right] 136 H Respiratory Rate 18 Blood Pressure [Right Arm] 137/102 H Blood Pressure Mean [Right Arm] 113 02 Sat by Pulse Oximetry 100 Oxygen Delivery Method Room Air Lab Data Lab results reviewed: Yes I reviewed the patient's lab results. Medical Decision Narrative: 25-year-old female with extensive history of addiction presents for unintentional opiate overdose. History was obtained via interactive discussion with patient. On arrival, patient is afebrile, tachycardic, normotensive, satting appropriately on room air, moving all extremities spontaneously. Full physical exam performed and significant for tearful woman, clear lungs bilaterally. Differential includes but is not limited to overdose, withdrawal,. Patient was given Narcan by bystanders on scene. Immediately upon arrival, patient reports that she would like to leave. I discussed with her that we would like to monitor her for a period of couple hours at least to ensure that she does not require further Narcan doses. She reports that she has overdosed before and understands and is going to leave regardless. Patient was given Narcan prior to AMA discharge. Procedures Risk/Benefits of Procedure(s) Were Explained: Yes Critical Care Critical Care Time Critical Care Time: No
[2025-08-13] MEDS: NALOXONE HCL 4MG SPRAY 4 MG NS (23:07)
--- NOTE | 2025-08-13 23:07 | PC.NURSE ---
Pt expressed to the MD that she would like to sign out AMA Pt discharged AMA for signed IV d/c'd
[2025-08-13 23:12] VITALS: BP 137/102; PULSE 136; RESP 18; TEMP 37; O2SAT 100
== END 2025-08-13 23:13 | disposition left against medical advice (07) ==
LOC: ER 23:10
PROVIDERS: Emergency Provider Emergency Medicine
DX: T40.601A Poisoning by unspecified narcotics, accidental (unintentional), initial encounter (principal)
CPT/HCPCS: 99283; 99284